=== PATIENT | female | born 1965 | race Caucasian/White ===

== ENCOUNTER 2019-01-14 11:55 | Inpatient (IN) | payer MEDICAID ==
--- NOTE | 2019-01-14 12:14 | ER Document Report ---
ED NIH Stroke Scale - NIH Stroke Scale *: 1. NIH scale should be completed with appropriate accompanying assessment tools. *: 2. The NIH should reflect what the patient is capable of doing and should not be coached by the clinician. 1a. Level of Consciousness: 0=Alert;keenly responsive -: 1=Drowsy -: 2=Obtunded -: 3=Coma/unresponsive or reflex to noxious stimuli. 1a. Responses: 1 1b. Orientation Questions: a. What month is it? -: b. How old are you? -: 0=Answers both questions correctly. -: 1=Answers one question correctly or patient is intubated or has orotracheal trauma. -: 2=Answers neither question correctly. 1b. Responses: 2 1c. Response to commands: a. Open and close eyes? -: b. 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 -: Credit is given despite weakness. Demonstration of task is permitted. Substitute command if hands cannot be used. -: 0=Performs both tasks correctly -: 1=Performs one task correctly -: 2=Performs neither task correctly 1c. Responses: 0 2. Gaze: Establish eye contact and instruct patient to "Follow my finger" -: 0=Normal -: 1=Partial gaze palsy. Gaze is abnormal in one or both eyes, but where forced deviation or total gaze paresis is not present. -: 2=Forced deviation or total gaze paresis. 2. Responses: 0 3. Visual Flannery: Sees fingers in all four quadrants. -: 0=No visual loss. -: 1=Partial hemianopsia. -: 2=Complete hemianopsia. -: 3=Bilateral hemianopsia (including Cortical blindness) 3. Responses: 0 4. Facial Movement: Instruct patient to: -: a. Show me your teeth -: b. Raise your eyebrows -: c. Close your eyes -: d. Smile -: 0=Normal symmetrical movement -: 1=Minor paralysis (flattened nasolabial fold, asymmetry on smiling). -: 2=Partial paralysis (total or near total paralysis of lower face). -: 3=Complete paralysis of upper and lower face 4. Responses: 0 5. Motor functions (left arm): Alternate sides and extend each arm with palms down (90 degrees if sitting or 45 degrees for supine). -: 0=No drift;limb holds for full 10 seconds. -: 1=Drift; limb holds but drifts down before full 10 seconds, but does not hit bed. -: 2=Some effort against gravity; limb cannot get to or maintain position. -: 3=No effort against gravity; limb falls. -: 4=No movement. -: UN=Amputation, joint fusion, explain in comments. 5. Responses (left arm): 1 5. Motor Functions (right arm): Alternate sides and extend each arm with palms down (90 degrees if sitting or 45 degrees for supine). -: 0=No drift;limb holds for full 10 seconds. -: 1=Drift; limb holds but drifts down before full 10 seconds, but does not hit bed. -: 2=Some effort against gravity; limb cannot get to or maintain position. -: 3=No effort against gravity; limb falls. -: 4=No movement. -: UN=Amputation, joint fusion, explain in comments. 5. Responses (right arm): 0 6. Motor Functions (left leg): With patient lying supine, alternate sides and extend each leg (30 degrees always while supine). -: 0=No drift, leg holds position for full 5 seconds -: 1=Drift; leg falls before full 5 seconds but does not hit bed. -: 2=Some effort against gravity, leg falls to bed but some effort against gravity. -: 3=No effort against gravity, leg falls to bed immediately. -: 4=No movement. -: UN=Amputation, joint fusion; explain in comments. 6. Motor Functions (right leg): With patient lying supine, alternate sides and extend each leg (30 degrees always while supine). -: 0=No drift, leg holds position for full 5 seconds -: 1=Drift; leg falls before full 5 seconds but does not hit bed. -: 2=Some effort against gravity, leg falls to bed but some effort against gravity. -: 3=No effort against gravity, leg falls to bed immediately. -: 4=No movement. -: UN=Amputation, joint fusion; explain in comments. 7. Limb Ataxia: With eyes open instruct patient to: -: a. "Touch your finger to your nose". -: b. "Touch your heel to your carroll" -: 0=Absent -: 1=Present in one limb. -: 2=Present in two limbs. -: UN=Amputation or joint fusion; explain in comments. 8. Sensory: Test sensation using pinprick or noxious stimuli. Test as many body parts as possible. -: 0=Normal;no sensory loss -: 1=Mile to moderate sensory loss (patient feels pin prick but is less sharp on affected side). -: 2=Severe or total sensory loss. 8. Responses: 0 9. Best Language: Instruct patient to: -: a. "Describe what you see in this picture." -: b. "Name the items in this picture." -: c. "Read these sentences." -: 0=No aphasia, normal -: 1=Mild to moderate aphasia. -: 2=Severe aphasia -: 3=Mute, global aphasia, no usable speech or auditory comprehension. 10. Articulation, Dysarthia: Instruct patient to: -: "Read these words" or "Repeat these words" -: 0=Normal -: 1=Mild to moderate; patient may slur some words but can be understood without difficulty. -: 2=Severe; patients speech so slurred as to be unintelligible in the absence of dysphasia. -: UN=Intubated or other physical barrier, explain in comments. 11. Extinction or inattention: 0=No abnormality -: 1= Visual, tactile, auditory, spatial, or personal inattention or extinction to bilateral simulation in one or the sensory modalities. -: 2=Profound maria guadalupe-inattention or maria guadalupe-inattention to more than one modality; does not recognize own hand. Total Score: 4
--- NOTE | 2019-01-14 12:16 | ER Document Report ---
ED Medical Screen (RME) - General Chief Complaint: Headache Stated Complaint: HEADACHE Time Seen by Provider: 01/14/19 12:06 Primary Care Provider: GIOVANNI,WILTON [Primary Care Provider] - Follow up as needed Mode of Arrival: Medic Information source: Patient Notes: 53-year-old female presented to ED for complaint of headache since last night. She is not able to answer all questions appropriately. She is not able to stand without someone supporting her weight. She is not able to ambulate. She does not know what city or town or what hospital she is in. She states she does not know anything except that she has had a headaches since last night. She states she does know she had a stroke in the past. She states that her family supposed to be getting a ride to come in to answer all questions because she does not know the answers to much. She said all she really knows that she has a really bad headache. Patient unable to completely follow commands when asking to open and close eyes she does open and close on but not as instructed. Her arms move around when asked to hold them up so you not really able to determine drift. 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 She is unable to answer questions appropriately. I have greeted and performed a rapid initial assessment of this patient. A comprehensive ED assessment and evaluation of the patient, analysis of test results and completion of medical decision making process will be conducted by an additional ED providers. - Related Data Allergies/Adverse Reactions: No Known Allergies Allergy (Verified 04/08/12 09:20) Past Medical History - Past Medical History Cardiac Medical History: Denies: Hx Heart Attack, Hx Hypertension Pulmonary Medical History: Reports: Hx Asthma Endocrine Medical History: Denies: Hx Diabetes Mellitus Type 2 Skin Medical History: Reports Hx Cellulitis, Denies Hx MRSA Infectious Medical History: Denies: Hx MRSA Past Surgical History: Reports: Hx Appendectomy, Hx Section - Immunizations Hx Diphtheria, Pertussis, Tetanus Vaccination: Yes Doctor's Discharge - Discharge Referrals: GIOVANNI,WILTON [Primary Care Provider] - Follow up as needed
--- NOTE | 2019-01-14 12:31 | RADIOLOGY REPORT (SQ) ---
EXAM DESCRIPTION: CT HEAD WITHOUT COMPLETED DATE/TIME: 01/14/2019 12:20 pm REASON FOR STUDY: Confusion headache previous stroke COMPARISON: None. TECHNIQUE: Axial images acquired through the brain without intravenous contrast. Images reviewed wi th bone, brain and subdural windows. Additional sagittal and coronal reconstructions were generated. Images stored on PACS. All CT scanners at this facility use dose modulation, iterative reconstruction, and/or weight based d osing when appropriate to reduce radiation dose to as low as reasonably achievable (ALARA). [facility]: Dose Right [facility]: CareDose [facility]: Dose Right [facility]: Teradose 4D [facility]: [employer] RADIATION DOSE: CT Rad equipment meets quality standard of care and radiation dose reduction techniq ues were employed. CTDIvol: 53.2 mGy. DLP: 1017 mGy-cm. mGy. LIMITATIONS: None. FINDINGS: There is an area encephalomalacia in the distribution of the right MCA associated with ex vacuo dilatation of the lateral ventricle. There is no acute intracranial hemorrhage, vascular venkata torial infarct, extra-axial fluid collection, mass effect or midline shift. There is no effacement o f the basal subarachnoid cisterns. The stokes-white matter differentiation outside the area of encepha lomalacia is preserved. The globes and orbits are intact. There is no fracture of the calvarium. The paranasal sinuses and the mastoid air cells are clear. IMPRESSION: Chronic right MCA distribution infarct. No acute intracranial abnormality. EVIDENCE OF ACUTE STROKE: NO. COMMENT: Quality ID # [id number]: Final reports with documentation of one or more dose reduction techniques (e.g., Automated exposure control, adjustment of the mA and/or kV according to patient size, use of iterative reconstruction technique) TECHNICAL DOCUMENTATION: JOB ID: [id number] [employer]- All Rights Reserved Reading location - IP/workstation name: [email or web address]
[2019-01-14 12:59] LABS: ABSOLUTE BASOPHILS # (AUTO) 0.1 10^3/uL (0.0-0.2); ABSOLUTE EOSINOPHILS # (AUTO) 0.2 10^3/uL (0.0-0.6); ABSOLUTE LYMPHOCYTES (AUTO) 4.5 10^3/uL (0.5-4.7); ABSOLUTE MONOCYTES (AUTO) 0.7 10^3/uL (0.1-1.4); ABSOLUTE NEUT (AUTO) 7.6 10^3/uL (1.7-8.2); BASOPHILS % (AUTO) 1.1 % (0-2); EOSINOPHILS % (AUTO) 1.8 % (0-6); HEMATOCRIT 48.3 % (36.0-47.0); HEMOGLOBIN 16.1 g/dL (12.0-15.5); LYMPHOCYTES % (AUTO) 34.3 % (13-45); MEAN CORPUSCULAR HEMOGLOBIN 29.9 pg (27.0-33.4); MEAN CORPUSCULAR HGB CONC 33.4 g/dL (32.0-36.0); MEAN CORPUSCULAR VOLUME 90 fl (80-97); MONOCYTES % (AUTO) 5.1 % (3-13); PLATELET COUNT 415 10^3/uL (150-450); RED CELL DISTRIBUTION WIDTH 15.1 % (11.5-14.0); SEGMENTED NEUTROPHILS % (AUTO) 57.7 % (42-78); TOTAL CELLS COUNTED % (AUTO) 100 %; WHITE BLOOD COUNT 13.1 10^3/uL (4.0-10.5)
[2019-01-14 13:00] LABS: INTERNATIONAL RATION (INR) 0.99; PROTHROMBIN TIME 13.1 SEC (11.4-15.4)
[2019-01-14 13:01] LABS: PARTIAL THROMBOPLASTIN TIME 27.8 SEC (23.5-35.8)
[2019-01-14] MEDS ORDERED: METOCLOPRAMIDE HCL INJ/PF 10 MG/2 ML SDV IV ONE (13:08)
[2019-01-14] MEDS ORDERED: NORMAL SALINE 1000 ML 1,000 ML IV ONE (13:08)
[2019-01-14] MEDS ORDERED: DIPHENHYDRAMINE HCL 50 MG/ML VIAL IV ONE (13:08)
--- NOTE | 2019-01-14 13:09 | ER Document Report ---
ED Headache - General Chief Complaint: Headache Stated Complaint: HEADACHE Time Seen by Provider: 01/14/19 12:06 Mode of Arrival: Medic - HPI Notes: 53-year-old female with past medical history of right MCA stroke in 2018 and bilateral upper extremity DVTs to the emergency department with family with com plaints of altered mental status, headache that began this morning. Daughter Lisa states that she went to wake her mother up this morning to have her sign some Medicaid paperwork. Daughter states that when she woke the patient up she states that she did not feel very well and when she attempted to sign the paperwork her signature was abnormal from usual. She states that typically the patient can write her name legibly but not this morning. She also states that her mom had difficulty walking. Since her stroke in 2018 she has had a little bit of a left foot drag but she typically is up and walking every single day without assistance. Daughter does state that she has baseline confusion since she had the CVA in 2018she often is not oriented to place and time. Daughter also states that sometimes she has difficulty completing tasks and she has had the stroke as well. Last known normal for her baseline since she had the stroke was 930 last night. Patient states that she has a frontal headache. She denies any nausea vomiting or photophobia with it she states that it started "last night" but daughter states that she was not informed of the headache until this morning when she woke her up. Patient does admit that when she tries to stand up she feels like "her brain is sloshing around in her head. She is not able to give a lot of history due to her confusion. She does state that she supposed to take Xarelto but she has not been taking it. Daughter confirms this and states that she has not had her Xarelto for almost a whole month. She is supposed to be on the Xarelto for the DVTs that she has had in the past. She states that she is not on any other medicine and she does not currently have a primary care physician. There is no family history of cerebral aneurysms. - Related Data Allergies/Adverse Reactions: No Known Allergies Allergy (Verified 04/08/12 09:20) Past Medical History - General Information source: Patient, Relative - Daughter - Social History Smoking Status: Current Every Day Smoker Frequency of alcohol use: None Drug Abuse: None Family History: Reviewed & Not Pertinent Patient has suicidal ideation: No Patient has homicidal ideation: No - Past Medical History Cardiac Medical History: Denies: Hx Heart Attack, Hx Hypertension Pulmonary Medical History: Reports: Hx Asthma Endocrine Medical History: Denies: Hx Diabetes Mellitus Type 2 Skin Medical History: Reports Hx Cellulitis, Denies Hx MRSA Infectious Medical History: Denies: Hx MRSA Past Surgical History: Reports: Hx Appendectomy, Hx Section - Immunizations Hx Diphtheria, Pertussis, Tetanus Vaccination: Yes Hx Pneumococcal Vaccination: 02/24/00 Review of Systems - Review of Systems Constitutional: denies: Chills, Fever EENT: denies: Blurred vision, Double vision Cardiovascular: Dizziness. denies: Chest pain, Palpitations, Syncope Respiratory: denies: Cough, Short of breath Gastrointestinal: denies: Abdominal pain, Diarrhea, Nausea, Vomiting Musculoskeletal: No symptoms reported Skin: No symptoms reported Neurological/Psychological: Confusion, Headaches -: Yes All other systems reviewed and negative Physical Exam - Vital signs Vitals: Temp Pulse BP Pulse Ox 98.3 F 78 128/89 H 86 L 01/14/19 12:03 01/14/19 12:03 01/14/19 12:03 01/14/19 12:03 Interpretation: Normal Notes: Selected Entries 01/14/19 12:19 Heart Rate ( 72 Monitors) Respiratory 23 H Rate Blood Pressure 164/90 H O2 Sat by Pulse 96 Oximetry - General General appearance: Appears well, Alert, Other - patient appears confused In distress: None - HEENT Head: Normocephalic, Atraumatic Eyes: Normal Pupils: PERRL Ears: Normal External canal: Normal Tympanic membrane: Normal Sinus: Normal Nasal: Normal Mouth/Lips: Normal Pharynx: Normal Neck: Normal, Supple. No: Lymphadenopathy, Meningismus - Respiratory Respiratory status: No respiratory distress Chest status: Nontender. No: Accessory muscle use Breath sounds: Normal. No: Rales, Rhonchi, Wheezing Chest palpation: Normal - Cardiovascular Rhythm: Regular Heart sounds: Normal auscultation Murmur: No Notes: no pedal edema - Abdominal Inspection: Normal Distension: No distension Bowel sounds: Normal Tenderness: Nontender. No: McBurney's point, Nunez's sign, Guarding Organomegaly: No organomegaly - Back Back: Normal, Nontender. No: Deformity/step-off, CVA tenderness - Extremities General lower extremity: No: Tory's sign - Neurological Neuro grossly intact: Yes Cognition: Normal Orientation: Disoriented to place, Disoriented to time Live Coma Scale Eye Opening: Spontaneous Scott Coma Scale Verbal: Confused Scott Coma Scale Motor: Obeys Commands Live Coma Scale Total: 14 Speech: Normal. No: Dysarthria, Expressive aphasia, Receptive aphasia Cranial nerves: Normal. No: Facial palsy, Forehead sparing, Gaze palsy, Sensory deficit, Tongue deviation Cerebellar coordination: Gait ataxia - When attempting to get the patient up and walk her, she has ataxia and cannot ambulate without significant aid -- this is a new finding for her since yesterday at 9:30 PM, Heel-carroll - no leg drift, normal heel to carroll although patient hesitates slightly when performing this., Other - normal finger to nose bilaterally. 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 No: Pronator drift Sensory: Normal - Psychological Associated symptoms: Normal mood, Flat affect - Skin Skin Temperature: Warm Skin Moisture: Dry Skin Color: Normal Course - Re-evaluation Re-evalutation: 01/14/19 Called patient's daughter to confirm story, find out timeline of last known normal which was 9:30 PM last night. Patient is supposed to be on Xarelto and has not been on it for one month. Discussed patient with Dr. Diaz. We agree that this patient's ataxia which is new with her sensation of "brain sloshing" that this could be a posterior circulation CVA. Will dose with aspirin and obtain MRI. Will discuss with hospitalist team. Dr. Diaz agrees with the plan. Spoke with Dr. Mcclellan about patient. He will come down and evaluate her. He will discuss with me further bed assignment once he sees her. Dr. Mcclellan came down into the ER, saw patient. Would like her to go to [facility]. MRI has been ordered. He is aware of ASA given. He accepts her to his service. Impression: AMS, confusion, headache, concern for possible CVA. Patient will be admitted to the hospital for further evaluation. Family and patient agree with the plan. - Vital Signs Vital signs: Temp Pulse Resp BP Pulse Ox 98.3 F 78 18 150/87 H 95 01/14/19 12:03 01/14/19 12:03 01/14/19 15:00 01/14/19 15:00 01/14/19 15:00 - Laboratory Result Diagrams: 01/14/19 12:40 01/14/19 12:40 Laboratory results interpreted by me: 01/14/19 01/14/19 12:40 13:48 WBC 13.1 H RBC 5.40 H Hgb 16.1 H Hct 48.3 H RDW 15.1 H Urine Blood MODERATE H Leukocyte Esterase Rfl LARGE H - Diagnostic Test Radiology reviewed: Image reviewed, Reports reviewed - EKG Interpretation by Me EKG shows normal: Sinus rhythm Rate: Normal Rhythm: NSR When compared to previous EKG there are: No significant change Additional EKG results interpreted by me: 01/14/19 No STEMI, rate of 69, no ST changes, no changes from prior. Discharge - Discharge Clinical Impression: Dizziness Altered mental status Qualifiers: Altered mental status type: unspecified Qualified Code(s): R41.82 - Altered mental status, unspecified CVA (cerebral vascular accident) Qualifiers: CVA mechanism: unspecified Qualified Code(s): I63.9 - Cerebral infarction, unspecified Condition: Stable Disposition: ADMITTED INPATIENT Admitting Provider: Eleuterio (Hospitalist) Unit Admitted: [facility]
[2019-01-14 13:13] LABS: ALBUMIN 4.5 g/dL (3.5-5.0); ALKALINE PHOSPHATASE 88 U/L (38-126); ANION GAP 8 (5-19); ASPARTATE AMINO TRANSFERASE 27 U/L (14-36); BILIRUBIN,DIRECT 0.3 mg/dL (0.0-0.4); BLOOD UREA NITROGEN 12 mg/dL (7-20); CALCIUM 10.1 mg/dL (8.4-10.2); CARBON DIOXIDE 26 mmol/L (22-30); CHLORIDE 107 mmol/L (98-107); GLUCOSE 83 mg/dL (75-110); POTASSIUM 4.9 mmol/L (3.6-5.0); TOTAL PROTEIN 7.7 g/dL (6.3-8.2)
[2019-01-14 13:20] LABS: ALCOHOL < 10 mg/dL (NONE DETECTED)
[2019-01-14 14:34] LABS: APPEARANCE,URINE SLIGHTLY-CLOUDY; BILIRUBIN,URINE NEGATIVE (NEGATIVE); COLOR,URINE YELLOW; GLUCOSE, URINE NEGATIVE (NEGATIVE); KETONES,URINE NEGATIVE (NEGATIVE); PROTEIN,URINE NEGATIVE (NEGATIVE); URINE SPECIFIC GRAVITY 1.017; UROBILINOGEN,URINE NEGATIVE mg/dL (<2.0)
[2019-01-14 14:46] LABS: URINE AMPHETAMINES SCREEN NEGATIVE; URINE BARBITURATES SCREEN NEGATIVE; URINE BENZODIAZEPINES SCREEN NEGATIVE; URINE COCAINE SCREEN NEGATIVE; URINE MARIJUANA (THC) SCREEN NEGATIVE; URINE METHADONE SCREEN NEGATIVE; URINE PHENCYCLIDINE SCREEN NEGATIVE
[2019-01-14] MEDS ORDERED: ASPIRIN 81 MG TABLET, CHEWABLE PO ONE (14:59)
--- NOTE | 2019-01-14 15:00 | EKG REPORT ---
SEVERITY:- NORMAL ECG - SINUS RHYTHM : Confirmed by: Wilton Rogers MD 14-Jan-2019 14:59:35
[2019-01-14] MEDS ORDERED: LABETALOL HCL INJ 20 MG/4 ML DISP.SYRIN IV PRN (15:56)
--- NOTE | 2019-01-14 16:22 | PDOC H&P ---
History of Present Illness History of Present Illness: MIGUEL DAVIDSON is a 53 year old female with a prior history of stroke about a year ago, history of DVT, who is a current every day smoker and does not follow up with any physician, who presents with headache, alteration from her baseline mental status, and trouble walking. The patient is a terrible historian and so a lot of this history is obtained hand surgeon, with most of the information being provided by the daughter. She apparently lives with her daughter and her daughter's friend. She was last seen normal yesterday evening, and apparently her headache started around that time. She describes it as being towards the front of her head but also "sort of all over." It is difficult to ascertain if she has had any visual disturbances. She apparently has not had any trouble chewing or swallowing but says she has not eaten anything today. She said she ate last night and did not have any trouble. She has been reported as being very unsteady on her feet, when she was being weighed earlier and when she was assisted to the bedside commode. She was given some Benadryl and Reglan for her headache, and apparently her head not really bothering her too much now. Her blood pressures are elevated but we do not know what her baseline blood pressure is. Initial head CT showed an old stroke in the right MCA area but no evidence of hemorrhage or stroke in the interim. She is being admitted for suspicion of a new ischemic stroke. Past Medical History Cardiac Medical History: Denies: Myocardial Infarction, Hypertension Pulmonary Medical History: Reports: Asthma Endocrine Medical History: Denies: Diabetes Mellitus Type 2 Infectious Medical History: Denies: Methicillin-Resistant Staph Aureus Past Surgical History Past Surgical History: Reports: Appendectomy, Section Social History Smoking Status: Current Every Day Smoker Family History Family History: Reviewed & Not Pertinent Parental Family History Reviewed: No - Unable to obtain Children Family History Reviewed: No - Unable to obtain Sibling(s) Family History Reviewed.: No - Unable to obtain Medication/Allergy Allergies/Adverse Reactions: No Known Allergies Allergy (Verified 04/08/12 09:20) Review of Systems ROS unobtainable: Due to mental status Physical Exam Vital Signs: Temp Pulse Resp BP Pulse Ox 98.3 F 78 18 150/87 H 95 01/14/19 12:03 01/14/19 12:03 01/14/19 15:00 01/14/19 15:00 01/14/19 15:00 Intake & Output 01/13/19 01/14/19 01/15/19 06:59 06:59 06:59 Intake Total 1000 Balance 1000 Weight 58.5 kg General appearance: PRESENT: no acute distress, cooperative, disheveled, other - Smells strongly of cigarette smoke Head exam: PRESENT: atraumatic, normocephalic Eye exam: PRESENT: EOMI, PERRLA. ABSENT: conjunctival injection, nystagmus, scleral icterus Ear exam: PRESENT: normal external ear exam Mouth exam: PRESENT: dry mucosa, neck supple Teeth exam: PRESENT: poor dentation Throat exam: ABSENT: post pharyngeal erythema Neck exam: PRESENT: full ROM. ABSENT: carotid bruit, JVD, lymphadenopathy, meningismus, tenderness, thyromegaly Respiratory exam: PRESENT: clear to auscultation leonard, symmetrical, unlabored. ABSENT: accessory muscle use, chest wall tenderness, crackles, prolonged expiratory phas, rhonchi, tachypnea, wheezes Cardiovascular exam: PRESENT: RRR, +S1, +S2. ABSENT: diastolic murmur, systolic murmur Pulses: ABSENT: normal carotid pulses Vascular exam: PRESENT: normal capillary refill GI/Abdominal exam: PRESENT: normal bowel sounds, soft. ABSENT: distended, guarding, rebound, tenderness Extremities exam: PRESENT: other - Her toenails were very long and her feet were dirty. ABSENT: clubbing, pedal edema Musculoskeletal exam: PRESENT: normal inspection. ABSENT: deformity Neurological exam: PRESENT: alert, awake, oriented to person, oriented to place, abnormal gait, CN II-XII grossly intact. ABSENT: oriented to time, oriented to situation, motor sensory deficit - Except for her gait Psychiatric exam: PRESENT: flat affect Skin exam: PRESENT: dry, warm Results Laboratory Results: 01/14/19 12:40 01/14/19 12:40 01/14/19 01/14/19 01/14/19 12:40 12:40 12:40 WBC 13.1 H RBC 5.40 H Hgb 16.1 H Hct 48.3 H MCV 90 MCH 29.9 MCHC 33.4 RDW 15.1 H Plt Count 415 Seg Neutrophils % 57.7 Sodium 140.8 Potassium 4.9 Chloride 107 Carbon Dioxide 26 Anion Gap 8 BUN 12 Creatinine 0.77 Est GFR ( Amer) > 60 Glucose 83 Calcium 10.1 Total Bilirubin 1.0 AST 27 Alkaline Phosphatase 88 Total Protein 7.7 Albumin 4.5 Lipase 85.5 Serum HCG, Qual NEGATIVE Urine Color Urine Appearance Urine pH Ur Specific [place] Urine Protein Urine Glucose (UA) Urine Ketones Urine Blood Urine RBC (Auto) 01/14/19 13:48 WBC RBC Hgb Hct MCV MCH MCHC RDW Plt Count Seg Neutrophils % Sodium Potassium Chloride Carbon Dioxide Anion Gap BUN Creatinine Est GFR ( Amer) Glucose Calcium Total Bilirubin AST Alkaline Phosphatase Total Protein Albumin Lipase Serum HCG, Qual Urine Color YELLOW Urine Appearance SLIGHTLY-CLOUDY Urine pH 6.0 Ur Specific [place] 1.017 Urine Protein NEGATIVE Urine Glucose (UA) NEGATIVE Urine Ketones NEGATIVE Urine Blood MODERATE H Urine RBC (Auto) 35 01/14/19 12:40 Troponin I < 0.012 Impressions: Head CT 01/14/19 12:07 IMPRESSION: Chronic right MCA distribution infarct. No acute intracranial abnormality. EVIDENCE OF ACUTE STROKE: NO. Assessment and Plan - Diagnosis (1) CVA (cerebral vascular accident) Qualifiers: CVA mechanism: unspecified Qualified Code(s): I63.9 - Cerebral infarction, unspecified Is this a current diagnosis for this admission?: Yes Plan: She does not have a history of migraine headaches and so I do not think that this is an atypical migraine, at least at the light we have to rule out an acute ischemic stroke first given her history. This is certainly a plausible diagnosis. She has had a previous stroke about a year ago, she continues to smoke, she has not been taking any medications such as an aspirin or statin, and she is possible that she is hypertensive. We will do permissive hypertension for now, and start her on an aspirin a statin. We will get an MRI of the brain and carotid Doppler. We will have her seen by PT, OT, and speech therapy. - Time Time Spent with patient: 35 or more minutes - Inpatient Certification Based on my medical assessment, after consideration of the patient's comorbi dities, presenting symptoms, or acuity I expect that the services needed warrant INPATIENT care.: Yes I certify that my determination is in accordance with my understanding of Medicare's requirements for reasonable and necessary INPATIENT services [42 CFR 412.3e].: Yes Medical Necessity: Significant Comorbidiites Make Outpatient Treatment Too Risky, Need Close Monitoring Due to Risk of Patient Decompensation, Need For Continuous Telemetry Monitoring, Need for Neurological Checks
--- NOTE | 2019-01-14 18:25 | RADIOLOGY REPORT (SQ) ---
EXAM DESCRIPTION: MRA HEAD WITHOUT COMPLETED DATE/TIME: 01/14/2019 6:15 pm REASON FOR STUDY: EVAL FOR CVA COMPARISON: None. TECHNIQUE: Axial 3-D [id number] acquisition imaging performed through the brain in the area of t he [place]. Images reformatted using 3-D MIPS. LIMITATIONS: None. FINDINGS: SOURCE IMAGES: No unexpected findings on source images. No large masses. 3-D MIP: The right carotid artery is occluded. The [place] appears to be intact. OTHER: No other significant finding. IMPRESSION: Occluded right carotid artery. Intact [place]. TECHNICAL DOCUMENTATION: JOB ID: [id number] [employer]- All Rights Reserved Reading location - IP/workstation name: [email or web address]
--- NOTE | 2019-01-14 18:31 | RADIOLOGY REPORT (SQ) ---
EXAM DESCRIPTION: MRI HEAD WITHOUT COMPLETED DATE/TIME: 01/14/2019 6:15 pm REASON FOR STUDY: eval for CVA COMPARISON: CT 01/14/2019 TECHNIQUE: Multiplanar imaging includes non-contrasted T1, T2, FLAIR, and diffusion with ADC map seq uences. Images stored on PACS. LIMITATIONS: None. FINDINGS: ANATOMY: No anomalies. Normal vascular flow voids. Pituitary fossa normal. CSF SPACES: Normal in size and contour. No hemorrhage. CEREBRUM: Chronic right MCA infarction. Areas of increased white matter signal on FLAIR imaging. No evidence of hemorrhage, mass, or extraaxial fluid collection. POSTERIOR FOSSA: No signal alteration. No hemorrhage. No edema, masses or mass effect. Internal michele tory canals, cerebello-pontine angles, mastoids normal. DIFFUSION IMAGING: There is a small area of restricted diffusion in the right hemisphere of the cereb ellum. There is also restricted diffusion in the right occipital lobe. ORBITS: No masses. Globes normal. PARANASAL SINUSES: No fluid levels. Mucosa normal. OTHER: No other significant finding. IMPRESSION: 1. Areas of acute infarction involving the right cerebellar hemisphere and right occipi rafal lobe. 2. Old right middle cerebral artery infarction. 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
[2019-01-14] MEDS ORDERED: INFLUENZA QUAD (6MOS+) 2019-20 VAC 0.5 ML SYR IM ONE (18:41)
[2019-01-14] MEDS: HEPARIN SOD (PORCINE) 5,000 UNIT/ML 1 ML VIAL SUBCUT SCH (21:37)
[2019-01-14] MEDS: ATORVASTATIN CALCIUM 80 MG TABLET PO SCH (21:37)
[2019-01-15 05:43] LABS: HEMATOCRIT 42.5 % (36.0-47.0); HEMOGLOBIN 14.1 g/dL (12.0-15.5); MEAN CORPUSCULAR HEMOGLOBIN 29.6 pg (27.0-33.4); MEAN CORPUSCULAR HGB CONC 33.2 g/dL (32.0-36.0); MEAN CORPUSCULAR VOLUME 89 fl (80-97); PLATELET COUNT 344 10^3/uL (150-450); RED BLOOD COUNT 4.76 10^6/uL (3.72-5.28); RED CELL DISTRIBUTION WIDTH 15.3 % (11.5-14.0)
[2019-01-15 06:02] LABS: ANION GAP 8 (5-19); BLOOD UREA NITROGEN 16 mg/dL (7-20); CARBON DIOXIDE 22 mmol/L (22-30); CHLORIDE 112 mmol/L (98-107); CHOLESTEROL 145.47 mg/dL (0-200); GLUCOSE 86 mg/dL (75-110); POTASSIUM 4.3 mmol/L (3.6-5.0); TRIGLYCERIDES 89 mg/dL (<150)
[2019-01-15 06:12] LABS: DIRECT LDL 94 mg/dL (<100)
[2019-01-15] MEDS: HEPARIN SOD (PORCINE) 5,000 UNIT/ML 1 ML VIAL SUBCUT SCH ×3 (06:39→21:23)
--- NOTE | 2019-01-15 08:42 | RADIOLOGY REPORT (SQ) ---
EXAM DESCRIPTION: CAROTID DOPPLER COMPLETED DATE/TIME: 01/14/2019 7:37 pm REASON FOR STUDY: ischemic stroke COMPARISON: None. TECHNIQUE: Grayscale ultrasound, Doppler velocity and spectra, and color Doppler images acquired of the extra-cranial carotid and vertebral arteries. Images stored on PACS. LIMITATIONS: None. FINDINGS: RIGHT CAROTID CCA Velocities: Within normal limits. Right ICA is occluded. LEFT CAROTID CCA Velocities: Within normal limits. ICA Velocities Peak systolic 0.55 m/s. End diastolic 0.13 m/s. Proximal ICA/CCA peak systolic ratio not recorded by technologist. Spectra normal. No significant plaque. VERTEBRAL ARTERIES: Antegrade flow. Normal waveforms. SUBCLAVIAN ARTERIES: Not imaged. OTHER: No other significant finding. IMPRESSION: Occluded right ICA. No significant stenosis left ICA. COMMENT: Quality ID #[id number]: Velocity criteria are extrapolated from the diameter data as defined by t he Society of Radiologists in Ultrasound Consensus Conference. Radiology 2003: 229; 340-346. TECHNICAL DOCUMENTATION: JOB ID: [id number] [employer]- All Rights Reserved Reading location - IP/workstation name: [email or web address]
[2019-01-15] MEDS: ASPIRIN 81 MG TABLET, ENT COATED PO SCH (09:21)
--- NOTE | 2019-01-15 15:16 | PDOC PROGRESS REPORT ---
Subjective Progress Note for:: 01/15/19 Subjective:: No adverse events overnight. No new complaints. Blood pressure has improved. She still having some left-sided visual field deficits. I do not know if this is new or if it is chronic. Reason For Visit: ACUTE ISCHEMIC STROKE Physical Exam Vital Signs: Temp Pulse Resp BP Pulse Ox 98.4 F 70 17 112/59 L 95 01/15/19 11:28 01/15/19 12:00 01/15/19 12:00 01/15/19 12:00 01/15/19 12:00 Intake & Output 01/14/19 01/15/19 01/16/19 06:59 06:59 06:59 Intake Total 1480 Balance 1480 Weight 58.5 kg General appearance: PRESENT: no acute distress, cooperative, disheveled Respiratory exam: PRESENT: clear to auscultation leonard, symmetrical, unlabored. ABSENT: accessory muscle use, chest wall tenderness, crackles, prolonged expiratory phas, rhonchi, tachypnea, wheezes Cardiovascular exam: PRESENT: RRR, +S1, +S2. ABSENT: diastolic murmur, systolic murmur Pulses: ABSENT: normal carotid pulses Vascular exam: PRESENT: normal capillary refill GI/Abdominal exam: PRESENT: normal bowel sounds, soft. ABSENT: distended, guarding, rebound, tenderness Extremities exam: ABSENT: clubbing, pedal edema Musculoskeletal exam: PRESENT: normal inspection. ABSENT: deformity Neurological exam: PRESENT: alert, awake, oriented to person, oriented to place, abnormal gait, left-sided visual field deficit. ABSENT: oriented to time, oriented to situation Psychiatric exam: PRESENT: flat affect Skin exam: PRESENT: dry, warm Results Laboratory Results: 01/15/19 04:57 01/15/19 04:57 01/15/19 01/15/19 04:57 04:57 WBC 11.0 H RBC 4.76 Hgb 14.1 Hct 42.5 MCV 89 MCH 29.6 MCHC 33.2 RDW 15.3 H Plt Count 344 Sodium 141.7 Potassium 4.3 Chloride 112 H Carbon Dioxide 22 Anion Gap 8 BUN 16 Creatinine 0.77 Est GFR ( Amer) > 60 Glucose 86 Calcium 9.0 Triglycerides 89 Cholesterol 145.47 LDL Cholesterol Direct 94 VLDL Cholesterol 18.0 HDL Cholesterol 40 01/14/19 12:40 Troponin I < 0.012 Impressions: Brain MRI with MRA 01/14/19 00:00 IMPRESSION: Occluded right carotid artery. Intact [place]. Head CT 01/14/19 12:07 IMPRESSION: Chronic right MCA distribution infarct. No acute intracranial abnormality. EVIDENCE OF ACUTE STROKE: NO. Head MRI 01/14/19 14:59 IMPRESSION: 1. Areas of acute infarction involving the right cerebellar hemisphere and right occipital lobe. 2. Old right middle cerebral artery infarction. 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 No significant stenosis left ICA. Assessment and Plan - Diagnosis (1) CVA (cerebral vascular accident) Qualifiers: CVA mechanism: unspecified Qualified Code(s): I63.9 - Cerebral infarction, unspecified Is this a current diagnosis for this admission?: Yes Plan: She has definitely had a multi-territorial stroke on the right side in the posterior circulation. One in the right cerebellum and one in the right occipital lobe. She has an occluded right internal carotid which would account for her old stroke but does not account for these new ones. Her MRA did not show a posterior circulation stenosis. We will order an echocardiogram. She continues on aspirin and a statin. She will need skilled PT at discharge. - Time Time Spent with patient: 15-24 minutes
[2019-01-15] MEDS ORDERED: ACETAMINOPHEN 325 MG TABLET PO PRN (18:03)
[2019-01-15] MEDS: ATORVASTATIN CALCIUM 80 MG TABLET PO SCH (21:24)
[2019-01-16] MEDS: HEPARIN SOD (PORCINE) 5,000 UNIT/ML 1 ML VIAL SUBCUT SCH ×3 (05:41→22:04)
[2019-01-16] MEDS: ASPIRIN 81 MG TABLET, ENT COATED PO SCH (09:06)
--- NOTE | 2019-01-16 13:52 | PDOC PROGRESS REPORT ---
Subjective Progress Note for:: 01/16/19 Subjective:: No adverse events overnight. No new complaints. Blood pressure doing very well. She is been sleeping a lot today. Reason For Visit: ACUTE ISCHEMIC STROKE Physical Exam Vital Signs: Temp Pulse Resp BP Pulse Ox 98.0 F 62 15 118/70 94 01/16/19 11:27 01/16/19 12:00 01/16/19 12:00 01/16/19 12:00 01/16/19 12:00 Intake & Output 01/15/19 01/16/19 01/17/19 06:59 06:59 06:59 Intake Total 1480 Output Total 200 Balance 1480 -200 Weight 58.5 kg 59.4 kg General appearance: PRESENT: no acute distress, cooperative, disheveled Respiratory exam: PRESENT: clear to auscultation leonard, symmetrical, unlabored. ABSENT: accessory muscle use, chest wall tenderness, crackles, prolonged expi ratory phas, rhonchi, tachypnea, wheezes Cardiovascular exam: PRESENT: RRR, +S1, +S2. ABSENT: diastolic murmur, systolic murmur Pulses: ABSENT: normal carotid pulses Vascular exam: PRESENT: normal capillary refill GI/Abdominal exam: PRESENT: normal bowel sounds, soft. ABSENT: distended, guarding, rebound, tenderness Extremities exam: ABSENT: clubbing, pedal edema Musculoskeletal exam: PRESENT: normal inspection. ABSENT: deformity Neurological exam: PRESENT: alert, awake, oriented to person, oriented to place, abnormal gait, left-sided visual field deficit. ABSENT: oriented to time, oriented to situation Psychiatric exam: PRESENT: flat affect Skin exam: PRESENT: dry, warm Results Laboratory Results: 01/15/19 04:57 01/15/19 04:57 01/14/19 12:40 Troponin I < 0.012 Impressions: Brain MRI with MRA 01/14/19 00:00 IMPRESSION: Occluded right carotid artery. Intact [place]. Head CT 01/14/19 12:07 IMPRESSION: Chronic right MCA distribution infarct. No acute intracranial abnormality. EVIDENCE OF ACUTE STROKE: NO. Head MRI 01/14/19 14:59 IMPRESSION: 1. Areas of acute infarction involving the right cerebellar hemis phere and right occipital lobe. 2. Old right middle cerebral artery infarction. 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 No significant stenosis left ICA. Assessment and Plan - Diagnosis (1) CVA (cerebral vascular accident) Qualifiers: CVA mechanism: unspecified Qualified Code(s): I63.9 - Cerebral infarction, unspecified Is this a current diagnosis for this admission?: Yes Plan: She has definitely had a multi-territorial stroke on the right side in the posterior circulation. One in the right cerebellum and one in the right occipital lobe. She has an occluded right internal carotid which would account for her old stroke but does not account for these new ones. Her MRA did not show a posterior circulation stenosis. Echocardiogram pending. She continues on aspirin and a statin. She will need skilled PT at discharge. This will be somewhat of a challenge as she has no insurance. - Time Time Spent with patient: 15-24 minutes
[2019-01-16] MEDS: ATORVASTATIN CALCIUM 80 MG TABLET PO SCH (22:04)
[2019-01-17] MEDS: HEPARIN SOD (PORCINE) 5,000 UNIT/ML 1 ML VIAL SUBCUT SCH ×2 (06:40→15:01)
[2019-01-17] MEDS: ASPIRIN 81 MG TABLET, ENT COATED PO SCH (09:47)
--- NOTE | 2019-01-17 16:15 | PDOC DISCHARGE SUMMARY ---
Impression - Admit/DC Date/PCP Admission Date/Primary Care Provider: 01/14/19 16:04 Discharge Date: 01/17/19 - Discharge Diagnosis (1) CVA (cerebral vascular accident) Is this a current diagnosis for this admission?: Yes - Additional Information Resuscitation Status: Full Code Discharge Diet: Cardiac Discharge Activity: Supervised Activity Referrals: Jose Dominguez MD [Other] - 01/27/19 2:00 pm Prescriptions: Atorvastatin Calcium [Lipitor 80 mg Tablet] 80 mg PO QHS #30 tablet Home Medications: Aspirin [Ecotrin 81 mg EC Tablet] 81 mg PO DAILY tabec 01/17/19 Atorvastatin Calcium [Lipitor 80 mg Tablet] 80 mg PO QHS #30 tablet 01/17/19 History of Present Illiness History of Present Illness: MIGUEL DAVIDSON is a 53 year old female with a prior history of stroke about a year ago, history of DVT, who is a current every day smoker and does not follow up with any physician, who presents with headache, alteration from her baseline mental status, and trouble walking. The patient is a terrible historian and so a lot of this history is obtained hand i tube bender, with most of the information being provided by the daughter. She apparently lives with her daughter and her daughter's friend. She was last seen normal yesterday evening, and apparently her headache started around that time. She describes it as being towards the front of her head but also "sort of all over." It is difficult to ascertain if she has had any visual disturbances. She apparently has not had any trouble chewing or swallowing but says she has not eaten anything today. She said she ate last night and did not have any trouble. She has been reported as being very unsteady on her feet, when she was being weighed earlier and when she was assisted to the bedside commode. She was given some Benadryl and Reglan for her headache, and apparently her head not really bothering her too much now. Her blood pressures are elevated but we do not know what her baseline blood pressure is. Initial head CT showed an old stroke in the right MCA area but no evidence of hemorrhage or stroke in the interim. She is being admitted for suspicion of a new ischemic stroke. Hospital Course Hospital Course: She did fairly well ambulating for physical therapy, but did have some persistent visual field deficits, but I do not know if those are new to this stroke or persisting since her last stroke. She was eating and drinking without difficulty. Her blood pressure improved. She was provided a prescription for Lipitor and was told to take a baby aspirin every day. She was also encouraged to get a primary care provider. Strongly recommended that she quit smoking. She did not quit smoking after her last stroke and did not take any of her medications and subsequently had another one. We made arrangements for her to get a walker and some therapy. She was discharged in stable condition in the care of her daughter. Physical Exam Vital Signs: Temp Pulse Resp BP Pulse Ox 98.1 F 71 17 115/63 97 01/17/19 12:38 01/17/19 12:38 01/17/19 12:38 01/17/19 12:38 01/17/19 12:38 Intake & Output 01/16/19 01/17/19 01/18/19 06:59 06:59 06:59 Intake Total 0 480 Output Total 200 300 Balance -200 -300 480 Weight 59.4 kg 60.6 kg General appearance: PRESENT: no acute distress, cooperative, disheveled Respiratory exam: PRESENT: clear to auscultation leonard, symmetrical, unlabored. ABSENT: accessory muscle use, chest wall tenderness, crackles, prolonged expiratory phas, rhonchi, tachypnea, wheezes Cardiovascular exam: PRESENT: RRR, +S1, +S2. ABSENT: diastolic murmur, systolic murmur Pulses: ABSENT: normal carotid pulses Vascular exam: PRESENT: normal capillary refill GI/Abdominal exam: PRESENT: normal bowel sounds, soft. ABSENT: distended, guarding, rebound, tenderness Extremities exam: ABSENT: clubbing, pedal edema Musculoskeletal exam: PRESENT: normal inspection. ABSENT: deformity Neurological exam: PRESENT: alert, awake, oriented to person, oriented to place, abnormal gait, left-sided visual field deficit. ABSENT: oriented to time, oriented to situation Psychiatric exam: PRESENT: flat affect Skin exam: PRESENT: dry, warm Results Laboratory Results: WBC 11.0 10^3/uL (4.0-10.5) H 01/15/19 04:57 RBC 4.76 10^6/uL (3.72-5.28) 01/15/19 04:57 Hgb 14.1 g/dL (12.0-15.5) 01/15/19 04:57 Hct 42.5 % (36.0-47.0) 01/15/19 04:57 MCV 89 fl (80-97) 01/15/19 04:57 MCH 29.6 pg (27.0-33.4) 01/15/19 04:57 MCHC 33.2 g/dL (32.0-36.0) 01/15/19 04:57 RDW 15.3 % (11.5-14.0) H 01/15/19 04:57 Plt Count 344 10^3/uL (150-450) 01/15/19 04:57 Lymph % (Auto) 34.3 % (13-45) 01/14/19 12:40 [place] % (Auto) 5.1 % (3-13) 01/14/19 12:40 Eos % (Auto) 1.8 % (0-6) 01/14/19 12:40 Baso % (Auto) 1.1 % (0-2) 01/14/19 12:40 Absolute Neuts (auto) 7.6 10^3/uL (1.7-8.2) 01/14/19 12:40 Absolute Lymphs (auto) 4.5 10^3/uL (0.5-4.7) 01/14/19 12:40 Absolute Monos (auto) 0.7 10^3/uL (0.1-1.4) 01/14/19 12:40 Absolute Eos (auto) 0.2 10^3/uL (0.0-0.6) 01/14/19 12:40 Absolute Basos (auto) 0.1 10^3/uL (0.0-0.2) 01/14/19 12:40 Seg Neutrophils % 57.7 % (42-78) 01/14/19 12:40 PT 13.1 SEC (11.4-15.4) 01/14/19 12:40 INR 0.99 01/14/19 12:40 APTT 27.8 SEC (23.5-35.8) 01/14/19 12:40 Sodium 141.7 mmol/L (137-145) 01/15/19 04:57 Potassium 4.3 mmol/L (3.6-5.0) 01/15/19 04:57 Chloride 112 mmol/L (98-107) H 01/15/19 04:57 Carbon Dioxide 22 mmol/L (22-30) 01/15/19 04:57 Anion Gap 8 (5-19) 01/15/19 04:57 BUN 16 mg/dL (7-20) 01/15/19 04:57 Creatinine 0.77 mg/dL (0.52-1.25) 01/15/19 04:57 Est GFR ( Amer) > 60 (>60) 01/15/19 04:57 Est GFR (MDRD) Non-Af > 60 (>60) 01/15/19 04:57 Glucose 86 mg/dL (75-110) 01/15/19 04:57 POC Glucose 75 mg/dL (70-110) 01/14/19 13:04 Calcium 9.0 mg/dL (8.4-10.2) 01/15/19 04:57 Total Bilirubin 1.0 mg/dL (0.2-1.3) 01/14/19 12:40 Direct Bilirubin 0.3 mg/dL (0.0-0.4) 01/14/19 12:40 Neonat Total Bilirubin Not Reportable 01/14/19 12:40 Neonat Direct Bilirubin Not Reportable 01/14/19 12:40 Neonat Indirect Bili Not Reportable 01/14/19 12:40 AST 27 U/L (14-36) 01/14/19 12:40 ALT 9 U/L (<35) 01/14/19 12:40 Alkaline Phosphatase 88 U/L (38-126) 01/14/19 12:40 Troponin I < 0.012 ng/mL 01/14/19 12:40 Total Protein 7.7 g/dL (6.3-8.2) 01/14/19 12:40 Albumin 4.5 g/dL (3.5-5.0) 01/14/19 12:40 Triglycerides 89 mg/dL (<150) 01/15/19 04:57 Cholesterol 145.47 mg/dL (0-200) 01/15/19 04:57 LDL Cholesterol Direct 94 mg/dL (<100) 01/15/19 04:57 VLDL Cholesterol 18.0 mg/dL (10-31) 01/15/19 04:57 HDL Cholesterol 40 mg/dL (>40) 01/15/19 04:57 Lipase 85.5 U/L (23-300) 01/14/19 12:40 Serum HCG, Qual NEGATIVE (NEGATIVE) 01/14/19 12:40 Urine Color YELLOW 01/14/19 13:48 Urine Appearance SLIGHTLY-CLOUDY 01/14/19 13:48 Urine pH 6.0 (5.0-9.0) 01/14/19 13:48 Ur Specific [place] 1.017 01/14/19 13:48 Urine Protein NEGATIVE mg/dL (NEGATIVE) 01/14/19 13:48 Urine Glucose (UA) NEGATIVE mg/dL (NEGATIVE) 01/14/19 13:48 Urine Ketones NEGATIVE mg/dL (NEGATIVE) 01/14/19 13:48 Urine Blood MODERATE (NEGATIVE) H 01/14/19 13:48 Urine Nitrite (Reflex) NEGATIVE (NEGATIVE) 01/14/19 13:48 Urine Bilirubin NEGATIVE (NEGATIVE) 01/14/19 13:48 Urine Urobilinogen NEGATIVE mg/dL (<2.0) 01/14/19 13:48 Leukocyte Esterase Rfl LARGE (NEGATIVE) H 01/14/19 13:48 Urine RBC (Auto) 35 /HPF 01/14/19 13:48 Urine Bacteria (Auto) TRACE /HPF 01/14/19 13:48 Urine WBC (Reflex) 23 /HPF 01/14/19 13:48 Squamous Epi Cells Auto 8 /HPF 01/14/19 13:48 Urine Mucus (Auto) RARE /LPF 01/14/19 13:48 Urine Ascorbic Acid NEGATIVE (NEGATIVE) 01/14/19 13:48 Urine Opiates Screen NEGATIVE 01/14/19 13:48 Urine Methadone Screen NEGATIVE 01/14/19 13:48 Ur Barbiturates Screen NEGATIVE 01/14/19 13:48 Ur Phencyclidine Scrn NEGATIVE 01/14/19 13:48 Ur Amphetamines Screen NEGATIVE 01/14/19 13:48 U Benzodiazepines Scrn NEGATIVE 01/14/19 13:48 Urine Cocaine Screen NEGATIVE 01/14/19 13:48 U Marijuana (THC) Screen NEGATIVE 01/14/19 13:48 Serum Alcohol < 10 mg/dL (NONE DETECTED) 01/14/19 12:40 01/14/19 12:40 Troponin I < 0.012 Impressions: Brain MRI with MRA 01/14/19 00:00 IMPRESSION: Occluded right carotid artery. Intact [place] of [place]. Head CT 01/14/19 12:07 IMPRESSION: Chronic right MCA distribution infarct. No acute intracranial abnormality. EVIDENCE OF ACUTE STROKE: NO. Head MRI 01/14/19 14:59 IMPRESSION: 1. Areas of acute infarction involving the right cerebellar hemisphere and right occipital lobe. 2. Old right middle cerebral artery infarction. 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 No significant stenosis left ICA. Plan Time Spent: Greater than 30 Minutes Stroke Is this a Stroke Patient?: Yes Stroke Pt being discharged on Anti-thrombolytic therapy?: Yes Stroke Pt being discharged on Anti-coagulation therapy?: No Reason(s) for not prescribing Anti-coagulation therapy:: Not indicated Stroke Pt being discharged on Statins?: Yes Acute Heart Failure - Is this a Heart Failure Patient?: No
[2019-01-17 17:03] VITALS: BP 117/67
--- NOTE | 2019-01-17 22:34 | XCELERA REPORT ---
[address] [address] Transthoracic Echocardiogram Report Name: MIGUEL DAVIDSON Age: 53 yrs Gender: Female : 1965 Patient Status: Inpatient Patient Location: [address] [place] [address] Study Date: 01/17/2019 11:46 AM Height: 60 in Weight: 128 lb BSA: 1.5 m2 Procedure: A two-dimensional transthoracic echocardiogram with color flow and Doppler was performed. The study was technically adequate with some images being suboptimal in quality. Reason For Study: multifocal posterior circulation stroke History: multifocal posterior circulation stroke. CVA. Ordering Physician: MAHI CANO Performed By: Kathryn Caba Interpretation Summary There is no obvious cardiac source of embolus noted on this transthoracic echocardiogram. Follow-up with a [facility] is suggested if cardiac source is still suspected. The left ventricle is normal in size. There is normal left ventricular wall thickness. LV EF is 60% to 65% Left ventricular systolic function is normal. Doppler measurements suggest normal left ventricular diastolic function The left ventricular wall motion is normal. There is no thrombus. No ASD , VSD , or PFO seen. The right ventricle is normal in size and function. The right atrium is normal in size The left atrial size is normal. There is no evidence of mitral valve prolapse. There is no vegetation seen on the mitral valve. There is no mitral valve stenosis. There is no mitral regurgitation noted. There is no aortic valvular vegetation. There is no aortic valve stenosis There is no LVOT obstruction. No aortic regurgitation is present. There is no tricuspid stenosis. There is a trace amount of tricuspid regurgitation Tricuspid regurgitation jet envelope not well defined to measure RV systolic pressure accurately. There is no pulmonic valvular stenosis. There is no pulmonic valvular regurgitation. The aortic root is normal size. The inferior vena cava appeared normal and decreased > 50% with respiration (RAP 5-10 mmHg) There is no pericardial effusion. There is no obvious cardiac source of embolus noted on this transthoracic echocardiogram. Follow-up with a [facility] is suggested if cardiac source is still suspected MMode/2D Measurements & Calculations IVSd: 0.72 cm LVIDd: 4.1 cm FS: 31.7 % Ao root diam: 2.1 cm LVIDs: 2.8 cm EDV(Teich): 75.7 ml Ao root area: 3.4 cm2 LVPWd: 0.83 cm ESV(Teich): 30.1 ml EF(Teich): 60.2 % Doppler Measurements & Calculations MV E max stefanie: MV dec slope: Ao V2 max: LV V1 max P.0 cm/sec 209.6 cm/sec2 130.9 cm/sec 5.1 mmHg MV A max stefanie: MV dec time: 0.30 sec Ao max PG: LV V1 max: 78.6 cm/sec 6.9 mmHg 112.5 cm/sec MV E/A: 0.79 PA V2 max: TR max stefanie: 80.3 cm/sec 176.0 cm/sec PA max P.6 mmHgTR max P.4 mmHg Left Ventricle The left ventricle is normal in size. There is normal left ventricular wall thickness. LV EF is 60% to 65%. Left ventricular systolic function is normal. Doppler measurements suggest normal left ventricular diastolic function. The left ventricular wall motion is normal. There is no thrombus. No ASD , VSD , or PFO seen. Right Ventricle The right ventricle is normal in size and function. Atria The right atrium is normal in size. The left atrial size is normal. Mitral Valve There is no evidence of mitral valve prolapse. There is no vegetation seen on the mitral valve. There is no mitral valve stenosis. There is no mitral regurgitation noted. Aortic Valve There is no aortic valvular vegetation. There is no aortic valve stenosis. There is no LVOT obstruction. No aortic regurgitation is present. Tricuspid Valve There is no tricuspid stenosis. There is a trace amount of tricuspid regurgitation. Tricuspid regurgitation jet envelope not well defined to measure RV systolic pressure accurately. Pulmonic Valve There is no pulmonic valvular stenosis. There is no pulmonic valvular regurgitation. Great Vessels The aortic root is normal size. The inferior vena cava appeared normal and decreased > 50% with respiration (RAP 5-10 mmHg). Effusions There is no pericardial effusion. : MAHI CANO Lakshmi
== END 2019-01-17 17:57 | disposition home health service (06) | DRG 66 ==
LOC: ER 11:55 → EH 16:04 → 3N 18:22 → 3S 01-16 17:23
PROVIDERS: ADMIT Family Medicine; ATTEND Family Medicine
DX: I63.541 Cerebral infarction due to unspecified occlusion or stenosis of right cerebellar artery (principal); F17.200 Nicotine dependence, unspecified, uncomplicated; J45.909 Unspecified asthma, uncomplicated; T45.516A Underdosing of anticoagulants, initial encounter; R27.0 Ataxia, unspecified; Z86.718 Personal history of other venous thrombosis and embolism; H53.9 Unspecified visual disturbance; Z90.49 Acquired absence of other specified parts of digestive tract; Z79.01 Long term (current) use of anticoagulants; Z86.73 Personal history of transient ischemic attack (TIA), and cerebral infarction without residual deficits; Z79.82 Long term (current) use of aspirin
CPT/HCPCS: 36415; 70450; 70544; 70551; 80048; 80053; 80061; 80307; 81001; 82962; 83690; 84484; 84703; 85025; 85027; 85610; 85730; 93005; 93010; 93306; 93880; 96361; 96374; 96375; 99285; J1200; J1644; J2765; J3490; J7030

== ENCOUNTER 2019-07-09 02:13 | Emergency (ER) | payer MEDICAID ==
[2019-07-09] MEDS ORDERED: HEPARIN SODIUM,PORCINE/D5W 25,000 UNIT/250 ML RTUINJ IV PRN (02:39)
[2019-07-09] MEDS ORDERED: HEPARIN SOD (PORCINE) 1,000 UNIT/ML 10 ML VIAL IV ONE (02:39)
--- NOTE | 2019-07-09 03:11 | ER Document Report ---
Entered by MANOLO MIRZA SCRIBE 07/09/19 0234 Acting as scribe for:TIMMY RAMOS IV, MD ED General - General Stated Complaint: ARM PARALYSIS Mode of Arrival: Medic Information source: Friend, Emergency Med Personnel Notes: This 54 year old female patient with a history of CVA and DVT, current every day smoker, brought in by EMS presents to the ED today with complaints of right forearm pain and cyanosis that started approximately x1 hour prior to arrival. EMS reports that they were called out for a possible stroke by the patient's roommate who stated that the patient complained of RUE pain and seemed to have an altered mental status. EMS states that upon their arrival, the patient's right forearm was blue and cold, and that they couldn't palpate a radial pulse. The patient is a poor historian and can only report that she is on Eliquis per EMS. EMS notes the patient's baseline is of a "5 year old's mindset" per patient's daughter. TRAVEL OUTSIDE OF THE [place] IN LAST 30 DAYS: No - Related Data Allergies/Adverse Reactions: No Known Allergies Allergy (Verified 04/08/12 09:20) Past Medical History - General Information source: Emergency Med Personnel - Social History Smoking Status: Current Every Day Smoker Cigarette use (# per day): Yes Chew tobacco use (# tins/day): No Smoking Education Provided: No Lives with: Friend Family History: Reviewed & Not Pertinent Patient has suicidal ideation: No Patient has homicidal ideation: No - Past Medical History Cardiac Medical History: Reports: Hx DVT Pulmonary Medical History: Reports: Hx Asthma Neurological Medical History: Reports: Hx Cerebrovascular Accident Skin Medical History: Reports Hx Cellulitis Past Surgical History: Reports: Hx Appendectomy, Hx Section - Immunizations Hx Diphtheria, Pertussis, Tetanus Vaccination: Yes Hx Pneumococcal Vaccination: 02/24/00 Review of Systems - Review of Systems -: Yes ROS unobtainable due to patient's medical condition Physical Exam - Vital signs Vitals: Resp BP Pulse Ox 18 205/95 H 98 07/09/19 02:15 07/09/19 02:15 07/09/19 02:15 - General General appearance: Alert In distress: None - HEENT Head: Normocephalic, Atraumatic Eyes: Normal Pupils: PERRL - Respiratory Respiratory status: No respiratory distress Chest status: Nontender Breath sounds: Normal Chest palpation: Normal - Cardiovascular Rhythm: Regular Heart sounds: Normal auscultation Murmur: No Friction rub: No Gallop: None auscultated Pulses: Absent: Radial - Right Normal capillary refill: No - Capillary refill > 4 seconds in each digit of right hand - Abdominal Inspection: Normal Distension: No distension Bowel sounds: Normal Tenderness: Nontender Organomegaly: No organomegaly - Back Back: Normal, Nontender - Extremities General lower extremity: Normal inspection - Neurological Neuro grossly intact: Yes - Psychological Associated symptoms: Flat affect - Skin Skin Color: Dusky - Bluish/dusky skin color from antecubital region to fingertips of RUE Course - Re-evaluation Re-evalutation: 07/09/19 06:02 Results of ED MSE discussed with patient. Need for transfer to another Medical Center with vascular surgery capabilities discussed with patient. Patient expressed understanding of need for transfer. All questions were answered prior to the transfer. 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 He stated that Dr. Ac with vascular surgery already has 2 vascular emergencies that require his attention this morning and will be unable to care for this patient. He recommended contacting another Medical Center with vascular surgery capabilities and transferring the patient there. Reason for consultation: 07/09/19 05:52 Acute right upper extremity vascular occlusion dr. tariq ornelas, vascular surgery, [facility] Time consulted: 05:58 - dr. ornelas accepted pt for transfer to his facility Reason for consultation: 07/09/19 06:05 acute right upper extremity vascular occlusion Critical Care Note - Critical Care Note Total time excluding time spent on procedures (mins): 120 Discharge - Discharge Clinical Impression: Ischemia of right upper extremity Condition: Good Disposition: [facility] I personally performed the services described in the documentation, reviewed and edited the documentation which was dictated to the scribe in my presence, and it accurately records my words and actions.
[2019-07-09 03:17] LABS: INTERNATIONAL RATION (INR) 0.98
[2019-07-09 03:18] LABS: PARTIAL THROMBOPLASTIN TIME 24.5 SEC (23.5-35.8)
[2019-07-09 03:49] LABS: ALBUMIN 4.6 g/dL (3.5-5.0); ALKALINE PHOSPHATASE 92 U/L (38-126); ANION GAP 10 (5-19); ASPARTATE AMINO TRANSFERASE 24 U/L (14-36); BILIRUBIN,DIRECT 0.1 mg/dL (0.0-0.4); BILIRUBIN,TOTAL 0.4 mg/dL (0.2-1.3); BLOOD UREA NITROGEN 19 mg/dL (7-20); CALCIUM 9.8 mg/dL (8.4-10.2); CARBON DIOXIDE 23 mmol/L (22-30); CHLORIDE 106 mmol/L (98-107); GLUCOSE 159 mg/dL (75-110); POTASSIUM 4.3 mmol/L (3.6-5.0); TOTAL PROTEIN 7.5 g/dL (6.3-8.2)
[2019-07-09 03:52] LABS: HEMATOCRIT 48.7 % (36.0-47.0); HEMOGLOBIN 16.3 g/dL (12.0-15.5); MEAN CORPUSCULAR HGB CONC 33.4 g/dL (32.0-36.0); MEAN CORPUSCULAR VOLUME 90 fl (80-97); PLATELET COUNT 295 10^3/uL (150-450); RED BLOOD COUNT 5.43 10^6/uL (3.72-5.28); RED CELL DISTRIBUTION WIDTH 14.7 % (11.5-14.0); WHITE BLOOD COUNT 21.8 10^3/uL (4.0-10.5)
[2019-07-09] MEDS ORDERED: HYDRALAZINE HCL INJ/PF 20 MG/1 ML SDV IV ONE (03:56)
[2019-07-09 04:11] LABS: ABSOLUTE LYMPHOCYTES# (MANUAL) 1.7 10^3/uL (0.5-4.7); ABSOLUTE MONOCYTES # (MANUAL) 0.4 10^3/uL (0.1-1.4); BASOPHILS % (MANUAL) 0 % (0-2); EOSINOPHILS % (MANUAL) 0 % (0-6); LYMPHOCYTES % (MANUAL) 7 % (13-45); MONOCYTES % (MANUAL) 2 % (3-13); PLATELET COMMENT ADEQUATE; RBC MORPHOLOGY COMMENT NORMO-CYTIC/CHROMIC; SEGMENTED NEUTROPHILS % (MAN) 90 % (42-78); TOTAL CELLS COUNTED 100
--- NOTE | 2019-07-09 04:51 | RADIOLOGY REPORT (SQ) ---
EXAM DESCRIPTION: CT UPPER EXTREMITY WITH IV CONTRAST COMPLETED DATE/TME: 07/09/2019 02:32 CLINICAL HISTORY: 54 years, Female, right forearm blue, dusky, no radial pulse COMPARISON: None. TECHNIQUE: 668 Images stored on PACS. All CT scanners at this facility use dose modulation, iterative reconstruction, and/or weight based dosing when appropriate to reduce radiation dose to as low as reasonably achievable (ALARA). [facility]: Dose Right [facility]: CareDose [facility]: Dose Right [facility]: Teradose 4D [facility]: [employer] LIMITATIONS: None. FINDINGS: Limited evaluation of the right lung field is unremarkable. There is extensive motion artifact which degrades image quality and limits the exam. However, no CT evidence for acute fracture or acute osseous abnormality given the degree of motion artifact. Minor degenerative change of the shoulder. No discrete or defined fluid collection. There is also difficulty with patient positioning. No discrete enhancing abnormality. IMPRESSION: Limited due to patient positioning and motion. Otherwise, no CT evidence for acute osseous abnormality or focal enhancing abnormality. TECHNICAL DOCUMENTATION: Quality ID # [id number]: Final reports with documentation of one or more dose reduction techniques (e.g., Automated exposure control, adjustment of the mA and/or kV according to patient size, use of iterative reconstruction technique) copyright 2011 [employer]- All Rights Reserved
[2019-07-09] MEDS ORDERED: HEPARIN SOD (PORCINE) 1,000 UNIT/ML 10 ML VIAL IV PRN (05:39)
--- NOTE | 2019-07-09 07:34 | ER Document Report ---
Doctor's Note Notes: 07/09/19 07:33 Transport is here to take the patient to [facility]. Vital signs are stable. Patient is stable for transport for an emergency procedure.
[2019-07-09 07:54] VITALS: BP 157/75
== END 2019-07-09 07:35 | disposition short-term general hospital (02) ==
LOC: ER 02:13
DX: I99.8 Other disorder of circulatory system (principal); M79.631 Pain in right forearm; R23.0 Cyanosis; Z86.73 Personal history of transient ischemic attack (TIA), and cerebral infarction without residual deficits; Z86.718 Personal history of other venous thrombosis and embolism; F17.200 Nicotine dependence, unspecified, uncomplicated; F17.210 Nicotine dependence, cigarettes, uncomplicated; Z79.01 Long term (current) use of anticoagulants; J45.909 Unspecified asthma, uncomplicated
CPT/HCPCS: 96376; 99285; 96375; 96365; 36415; 85025; 85610; 85730; 80053; 73201; J1644 ×2; J0360